=== PATIENT | male | born 1940 | race Caucasian/White ===

== ENCOUNTER 2024-04-02 14:20 | Outpatient (CLI) | payer MEDICARE, SELFPAY ==
--- OUTSIDE RECORDS SUMMARY | 2024-04-02 14:32 | XMS_ITS | Encounter Summary ---
Author Organization [facility] Healthcare Address [address] [place] [address] Care Team Providers Care Compliance Counsel Name Role Phone Victor M Roman MD Unavailable [phone] Madelaine Cruz MD Primary Care Provide r Reason for Visit * Reason Comments Follow-up Encounter Details Date Type Department Care Team (Late st Contact Info) Description 04/01/2024 11:45 AM DIGITAL MEDIA BUYER Office Visit [facility] [place] [facility] [address] [place] [phone] Amber Orlando MD [address] [place] [address] [address] Chronic congestive heart failure, unspecified heart failure type (HCC) (Primary Dx) Social History Tobacco Use Types Packs/Day Years Used Date Smoking Tobacco: Former Cigarettes 0.5 40 1 981 - 2020 Smokeless Tobacco: Never Alcohol Use Standard Drinks/Week Comments No 0 (1 standard drink = 0.6 oz pur e alcohol) Sex and Gender Information Value Date Recorded Sex Assigned at Not on file Legal Sex Male 10:27 AM DIGITAL MEDIA BUYER Gender Identity Not on file Sexual Orientation Not on file documented as of this encounter Last Filed Vital Signs Vital Sign Reading Time Taken Comments Blood Pressure 144/88 04/01/2024 11:41 AM DIGITAL MEDIA BUYER Pulse 71 04/01/2024 11:41 AM DIGITAL MEDIA BUYER Temperature - - Respiratory Rate 16 04/01/2024 11:41 AM DIGITAL MEDIA BUYER Oxygen Saturation 90% 04/01/2024 11:41 AM DIGITAL MEDIA BUYER Inhaled Oxygen Concentration - - Weight 75.3 kg (166 lb) 04/01/2024 11:41 AM DIGITAL MEDIA BUYER Height - - Body Mass Index 25.24 12/27/2021 11:32 AM DIGITAL MEDIA BUYER documented in this encounter Progress Notes * Amber Orlando MD - 04/01/2024 11:45 AM CST Cardiology note 04/01/2024 This note contains information and findings from prior encounters which remain the same for today'sencounter. I have reviewed and made updates where applicable. Reason for Office Visit: Chief Complaint Patient presents with Follow-up History of Present Illness: Jaime Cuenca is a 83 y.o. male CABG X4 with admission with CP and cMP in 09/27 Has not been in the office since 2021 had moved to [place] for family reasons now he is back No cardiac complaints Compliant with his medications Continues to smoke Weight: up 5 lbs Review of Systems: Review of Systems Constitutional: Negative for decreased appetite, diaphoresis, fever, weight gain and weight loss. HENT: Negative for nosebleeds. Eyes: Negative for blurred vision. Cardiovascular: Negative for chest pain, claudication, cyanosis, dyspnea on exertion, irregular heartbeat, leg swelling, near-syncope, orthopnea, palpitations, paroxysmal nocturnal dyspnea and syncope. Respiratory: Negative for cough, hemoptysis, shortness of breath, sleep disturbances due to breathing, snoring, sputum production and wheezing. Hematologic/Lymphatic: Negative for bleeding problem. Does not bruise/bleed easily. Musculoskeletal: Negative for back pain. Gastrointestinal: Negative for bloating, heartburn and nausea. Genitourinary: Negative for hematuria. Neurological: Negative for excessive daytime sleepiness, dizziness, headaches, light-headedness, loss of balance and vertigo. Psychiatric/Behavioral: Negative for altered mental status and memory loss. Histories: Past Medical History: Diagnosis Date CAD (coronary artery disease) s/p 4v CABG in 07/2016, SHI-->diag, SVG-->ramus, radial graft-->OM, and SVG-->RCA. Subsequently had PCI to LAD and LCx in 09/2016. Last LHC 07/2017 with patent stents, TCO SVG to ramus but otherwise patent grafts. CHF (congestive heart failure) (CMS/HCC) (HCC) Depression GERD (gastroesophageal reflux disease) Hyperlipidemia Hypertension Myocardial infarct, old Past Surgical History: Procedure Laterality Date BYPASS GRAFT Family History Problem Relation Age of Onset Coronary artery disease Mother Family history of coronary artery disease - (Added by TW Conv) Hypertension Mother Heart disease Mother Coronary artery disease Father Family history of coronary artery disease - (Added by TW Conv) Lung cancer Father Social History Tobacco Use Smoking status: Former Smoker Packs/day: 0.50 Years: 40.00 Pack years: 20.00 Quit date: 2020 Years since quittin.7 Smokeless tobacco: Never Used Substance Use Topics Alcohol use: No Drug use: No Allergies: Allergies Allergen Reactions Codeine Metronidazole Current Outpatient Medications Medication Sig Dispense Refill amLODIPine (NORVASC) 5 mg tablet Take 1 tablet (5 mg total) by mouth daily aspirin 81 mg tablet Take 1 tablet (81 mg total) by mouth daily carvedilol (COREG) 3.125 mg tablet Take 1 tablet (3.125 mg total) by mouth 2 (two) times a day withmeals ciprofloxacin (CILOXAN) 0.3 % ophthalmic solution INSTILL 1 OR 2 DROPS INTO THE LEFT EYE THREE TIMES DAILY FOR 7 DAYS 0 clonazePAM (KlonoPIN) 0.125 mg disintegrating tablet Take 1 tablet (0.125 mg total) by mouth nightly as needed for anxiety 30 tablet 5 clonazePAM (KlonoPIN) 0.5 mg tablet clopidogrel (PLAVIX) 75 mg tablet Take 1 tablet (75 mg total) by mouth daily Entresto 97-103 mg tablet TAKE 1 TABLET BY MOUTH TWICE DAILY 180 tablet 1 metoclopramide (REGLAN) 5 mg tablet mirtazapine (REMERON) 30 mg tablet Take 1 tablet (30 mg total) by mouth nightly omeprazole (PriLOSEC) 20 mg capsule Take 1 capsule (20 mg total) by mouth 2 (two) times a day ondansetron ODT (ZOFRAN-ODT) 4 mg disintegrating tablet prochlorperazine (COMPAZINE) 5 mg tablet rosuvastatin (CRESTOR) 10 mg tablet TAKE 1 TABLET(10 MG) BY MOUTH DAILY 90 tablet 1 spironolactone (ALDACTONE) 25 mg tablet Take 1 tablet (25 mg total) by mouth daily tamsulosin (FLOMAX) 0.4 mg extended release capsule 1 capsule (0.4 mg total) venlafaxine XR (EFFEXOR-XR) 150 mg 24 hr capsule Take 1 capsule (150 mg total) by mouth daily 90 capsule 3 zolpidem (AMBIEN) 10 mg tablet Take 1 tablet (10 mg total) by mouth nightly as needed for sleep forup to 10 doses 10 tablet 0 No current facility-administered medications for this visit. No current facility-administered medications for this visit. Vital Signs: Vitals BP 144/88 (BP Location: Left arm, Patient Position: Sitting) Pulse 71 Resp 16 Wt 75.3 kg (166 lb) SpO2 90% BMI 25.24 kg/m?? Vitals: 04/01/24 1141 BP: 144/88 Pulse: 71 Resp: 16 SpO2: 90% Wt Readings from Last 3 Encounters: 04/01/24 75.3 kg (166 lb) 12/27/21 72.9 kg (160 lb 12.8 oz) 11/23/20 72.5 kg (159 lb 12.8 oz) Body mass index is 25.24 kg/m??. Physical Exam: Physical Exam Constitutional: General: He is not in acute distress. Appearance: Normal appearance. He is well-developed. He is not diaphoretic. HENT: Mouth/Throat: Pharynx: No oropharyngeal exudate. Eyes: Pupils: Pupils are equal, round, and reactive to light. Neck: Vascular: No JVD. Trachea: No tracheal deviation. Cardiovascular: Rate and Rhythm: Normal rate and regular rhythm. Pulses: Intact distal pulses. No decreased pulses. Carotid pulses are 2+ on the right side and 2+ on the left side. Radial pulses are 2+ on the right side and 2+ on the left side. Dorsalis pedis pulses are 2+ on the right side and 2+ on the left side. Posterior tibial pulses are 2+ on the right side and 2+ on the left side. Heart sounds: S1 normal and S2 normal. No murmur heard. No gallop. Pulmonary: Effort: Pulmonary effort is normal. Breath sounds: No decreased breath sounds, wheezing, rhonchi or rales. Abdominal: General: Bowel sounds are normal. Palpations: Abdomen is soft. Skin: General: Skin is warm and dry. Neurological: Mental Status: He is alert and oriented to person, place, and time. Labs: Lab Results Component Value Date INR 1.22 (H) 01/27/2018 INR 1.19 11/23/2017 INR 1.16 10/04/2017 Lab Results Component Value Date PT 13.1 (H) 01/27/2018 PT 12.8 11/23/2017 PT 13.1 (H) 10/04/2017 Lab Results Component Value Date TSH 0.52 01/27/2018 Lab Results Component Value Date BILIRUBINU Negative 07/31/2016 AST 14 01/27/2018 ALT 11 01/27/2018 ALKPHOS 75 01/27/2018 ALBUMIN 4.1 01/27/2018 Lab Results Component Value Date SODIUM 139 01/28/2018 POTASSIUM 4.0 01/28/2018 CHLORIDE 105 01/28/2018 CO2 25 01/28/2018 ANIONGAP 9 01/28/2018 GLUCOSEUR Negative 07/31/2016 Lab Results Component Value Date BNP 66 09/30/2016 Lab Results Component Value Date SODIUM 139 01/28/2018 SODIUM 141 01/27/2018 SODIUM 137 12/03/2017 POTASSIUM 4.0 01/28/2018 POTASSIUM 4.1 01/27/2018 POTASSIUM 4.3 12/03/2017 CHLORIDE 105 01/28/2018 CHLORIDE 108 01/27/2018 CHLORIDE 107 12/03/2017 CO2 25 01/28/2018 CO2 24 01/27/2018 CO2 25 12/03/2017 BUNSER 25 01/28/2018 BUNSER 18 01/27/2018 BUNSER 20 12/03/2017 CREATININE 0.93 04/18/2018 CREATININE 1.24 01/28/2018 CREATININE 1.09 01/27/2018 GFRNAA 63 12/03/2017 GFRNAA 65 12/02/2017 GFRNAA 57 12/01/2017 GLUCOSE 80 01/28/2018 CALCIUM 9.1 01/28/2018 CALCIUM 9.5 01/27/2018 CALCIUM 8.7 12/03/2017 ALBUMIN 4.1 01/27/2018 ALBUMIN 3.3 12/02/2017 ALBUMIN 3.6 12/01/2017 PHOS 3.3 06/18/2016 PHOS 2.2 (L) 12/18/2012 Lab Results Component Value Date SODIUM 139 01/28/2018 POTASSIUM 4.0 01/28/2018 CHLORIDE 105 01/28/2018 CO2 25 01/28/2018 ANIONGAP 9 01/28/2018 BUNSER 25 01/28/2018 CREATININE 0.93 04/18/2018 GLUCOSE 80 01/28/2018 CALCIUM 9.1 01/28/2018 BILITOT 0.5 01/27/2018 PROT 7.3 01/27/2018 ALBUMIN 4.1 01/27/2018 ALKPHOS 75 01/27/2018 ALT 11 01/27/2018 AST 14 01/27/2018 Lab Results Component Value Date WBC 5.7 01/28/2018 HGB 13.3 01/28/2018 HCT 42.3 01/28/2018 LABPLAT 214 01/28/2018 MPV 10.8 01/28/2018 RBC 4.94 01/28/2018 MCV 85.6 01/28/2018 MCH 26.9 (L) 01/28/2018 MCHC 31.4 (L) 01/28/2018 RDWCV 14.5 01/28/2018 RDWSD 44.3 01/28/2018 NRBCABS 0.00 01/28/2018 Lab Results Component Value Date CHOL 76 (L) 07/18/2017 TRIG 97 07/18/2017 HDL 24 (L) 07/18/2017 LDLCALC 33 (L) 07/18/2017 NONHDLCHOL 52 07/18/201712/01 lipid profile excellent Testing: Tests: C Cath 09/27 SVG to Ramus OCC, Radial Graft prox stenosis, SVG to RCA patent, SHI to diag patent, stent LAD and mid Cx 01/27 MUGA EF 48% 07/29 C Cath EF 35-40% all grafts and stents patent Med RX: LAD and Cx stents patent, SHI-D1 OK, SVG to PDA OK, Free radial to OM OK, Occ SVG to ramus 07/30 echo EF 50% EKG: NSR KS QRS 96 06/01 EKG shows sinus rhythm old anteroseptal KS 06/01 echocardiogram ejection fraction 45% 11/02 nuclear stress test no ischemia 01/02 EKG normal sinus rhythm old anterior KS ST and T abnormality 11/03 nuclear stress test no ischemia 11/04 echo ejection fraction 40-45% as before 04/07 EKG sinus rhythm old anterior [place] ST and T abnormality unchanged Diagnoses and Plan Assessment: Atherosclerotic heart disease of [place] coronary artery without angina pectoris [I25.10] Presence of aortocoronary bypass graft [Z95.1] Ischemic cardiomyopathy [I25.5] Presence of coronary angioplasty implant and graft [Z95.5] Atherosclerotic heart disease of [place] coronary artery without angina pectoris [I25.10] Presence of aortocoronary bypass graft [Z95.1] Ischemic cardiomyopathy [I25.5] Presence of coronary angioplasty implant and graft [Z95.5] Plan: Continue same medication regimen. Continue tight control of blood pressure and cholesterol. Continue diet, exercise, and weight maintenance. Smoking cessation discussed with patient including the potential health risks. Patient was given options of different aids for smoking cessation. Will continue the discussion. Recent stress test and echocardiogram reviewed appears stable Lipid profile and thyroid profile with his next lab work Yearly follow-up Diagnoses and all orders for this visit: Chronic congestive heart failure, unspecified heart failure type (HCC) (Primary) - ECG 12 lead No follow-ups on file. 11:51 AM Amber Orlando MD Cc:Moose Farr MD [employer]IA BUYER documented in this encounter Plan of Treatment Not on file documented as of this encounter Goals Goal Patient Goal Type Associated Problems Recent Progress Patient-Stated? Author Take your medication every day Lifestyle No Prabha Garcia MSW documented as of this encounter Procedures Procedure Name Priority Date/Time Associated Diagnosis Comments ECG 12-LEAD Routine 04/01/2024 11:39 AM DIGITAL MEDIA BUYER Chronic congestive heart failure, unspecified heart failure type (HCC) documented in this encounter Results * ECG 12 lead (04/01/2024 11:39 AM DIGITAL MEDIA BUYER) us Amber Orlando MD ECG ORDERABLES Final Result documented in this encounter Visit Diagnoses Diagnosis Chronic congestive heart failure, unspecified heart failure type (HCC)- Primary documented in this encounter Care Teams Compliance Counsel Relationship Specialty Start Date End Date Madelaine Cruz MD [address] [place] [id number] PCP - General Internal Medicine 04/01/24 Victor M Roman MD Consulting Physician Cardiology 12/03/17 documented as of this encounter
--- OUTSIDE RECORDS SUMMARY | 2024-04-02 14:32 | XMS_ITS | Referral Summary ---
Author Organization [facility] Address [address] [place] [address] Care Team Providers Care Compress Trucker Name Role Phone Victor M Roman MD Unavailable [phone] Madelaine Cruz MD Primary Care Provide r Encounters Date Type Department Care Team Description 04/01/2024 Orders Only [employer] Field Service Technician [address] [place] [phone] Amber Orlando MD Hyperlipidemia, unspecified hyperlipidemia type (Primary Dx) 04/01/2024 11:45 AM TRANSITIONAL KINDERGARTEN TEACHER Office Visit [facility] [employer] Service Technician [address] [place] [phone] Amber Orlando MD Chronic congestive heart failure, unspecified heart failure type (HCC) (Primary Dx) 03/23/2024 Orders Only [facility] [employer] Service Technician [address] [place] [phone] Provider, MD Keri from Last 3 Months Allergies Active Allergy Reactions Criticality Noted Date Comments Codeine Medium Metronidazole Medium Medications aspirin 81 mg tablet Take 1 tablet (81 mg total) by mouth daily Active clopidogrel (PLAVIX) 75 mg tablet Take 1 tablet (75 mg total) by mouth daily Active carvedilol (COREG) 3.125 mg tablet Take 1 tablet (3.125 mg total) by mouth 2 (two) times a day with meals Active spironolactone (ALDACTONE) 25 mg tablet Take 1 tablet (25 mg total) by mouth daily Active omeprazole (PriLOSEC) 20 mg capsule Take 1 capsule (20 mg total) by mouth 2 (two) times a day Active mirtazapine (REMERON) 30 mg tablet Take 1 tablet (30 mg total) by mouth nightly Active amLODIPine (NORVASC) 5 mg tablet Take 1 tablet (5 mg total) by mouth daily Active tamsulosin (FLOMAX) 0.4 mg extended release capsule 1 capsule (0.4 mg total) Active prochlorperazine (COMPAZINE) 5 mg tablet 8 Active metoclopramide (REGLAN) 5 mg tablet 9 Active clonazePAM (KlonoPIN) 0.5 mg tablet 9 Active ondansetron ODT (ZOFRAN-ODT) 4 mg disintegrating tablet 9 Active clonazePAM (KlonoPIN) 0.125 mg disintegrating tablet Take 1 tablet (0.125 mg total) by mouth nightly as needed for anxiety 30 tablet 5 9 Active ciprofloxacin (CILOXAN) 0.3 % ophthalmic solution INSTILL 1 OR 2 DROPS INTO THE LEFT EYE THREE TIMES DAILY FOR 7 DAYS 0 9 Active zolpidem (AMBIEN) 10 mg tabletIndications:S leep-Onset Insomnia Take 1 tablet (10 mg total) by mouth nightly as needed for sleep for up to 10 doses 10 tablet 9 Active venlafaxine XR (EFFEXOR-XR) 150 mg 24 hr capsule Take 1 capsule (150 mg total) by mouth daily 90 capsule 3 0 Active rosuvastatin (CRESTOR) 10 mg tablet TAKE 1 TABLET(10 MG) BY MOUTH DAILY 90 tablet 1 3 Active Entresto 97-103 mg tablet TAKE 1 TABLET BY MOUTH TWICE DAILY 180 tablet 1 3 Active Active Problems Problem Noted Date Diagnosed Date Irritable bowel syndrome without diarrhea 2020 BPH (benign prostatic hyperplasia) 01/28/2018 Assessment & Plan (01/28/2018 4:57 AM TRANSITIONAL KINDERGARTEN TEACHER): - home tamsulosin in AM CHF (congestive heart failure) (CMS/HCC) 018 GERD (gastroesophageal reflux disease) 8 Depression 12/01/2017 [facility] current use of clopidogrel 11/23/2017 Aspirin long-term use 11/23/2017 History of CHF (congestive heart failure) 2017 Nausea in adult 11/23/2017 Assessment & Plan (01/29/2018 8:49 AM TRANSITIONAL KINDERGARTEN TEACHER): Chronic since PCI in 07/2017. DDx functional vs billiary disease/malignancy, mesenteric angina, medication related, depression vs less likely mesenteric ischemia (prior CTA negative) - Biliary ductal dilation seen on CT likely related to previous cholecystectomy - Patient complaining of weight loss -> MRCP to rule out biliary cause - PPI, Zofran, GI cocktail, bowel regimen, - If MRCP negative, will discharge with supportive care and schedule outpatient follow up with GI - May benefit from SNRI and smoking cessation Assessment & Plan (11/24/2017 11:29 AM CDT): Chronic, with associated LUQ abd pain and rare emesis or changes in bowel habits. Does have 8lb weight loss over last 2wks. CT A/P w/ con showed diffuse and severe atherosclerosis of abdominal aorta and its iliac branches, unchanged since 09/2017 with patent visceral arteries. DDx includes med related (ongoing since increasing heart failure regimen meds) vs gastritis vs. chronic mesenteric ischemia (lactate upper limit of normal) vs less likely anginal equivalent vs functional. -Symptoms are not typical of abdominal angina. Pain has improved at this time. If symptoms worsen, can consider CT angio of abdomen -No other e/o malignancy on labs or imaging but does report weight loss. Reports recent EGD/c-scope with polyps removed but otherwise normal. Will obtain records today. -Symptoms are improving with zofran before meals and PRN Compazine. Assessment & Plan (11/23/2017 11:22 PM CDT): Chronic, with associated LUQ abd pain and rare emesis or changes in bowel habits. Does have 8lb weight loss over last 2wks. Labs otherwise fairly normal outside of mild trop elevation. CT A/P w/ con showed diffuse and severe atherosclerosis of abdominal aorta and its iliac branches, unchanged since 09/2017 with patent visceral arteries. DDx includes med related (ongoing since increasing heart failure regimen meds) vs chronic mesenteric ischemia (lactate upper limit of normal) vs less likely anginal equivalent vs functional. -Symptoms are not typical of abdominal angina but patient does have severe atherosclerosis. Could consider CT angio of abdomen but patient just received contrast for CT A/P so prefer to hold off. Unclear if patient would be a candidate for any vascular intervention if CT angio did show more distal arterial occlusion. Would benefit from smoking cessation. -No other e/o malignancy on labs or imaging but does report weight loss. Reports recent EGD/c-scope with polyps removed but otherwise normal. Can try to get records to determine need for repeat EGD in s/o weight loss. -Will plan to check A1c and TSH to r/o contributions from gastroparesis though symptoms aren't typical of this either. Check U/A to r/o UTI given LUTS. -Treat symptomatically with PO Zofran before meals and PRN Compazine. -Nutrition c/s for dietary management. -Patient would like to try to stop some of his cardiac meds as he feels they are causing nausea. Unfortunately, he is on a good regimen which seems to be helping him given lack of heart failure symptoms in patient with EF of 25%. -If symptoms controlled with PO Zofran, can likely d/c with outpatient GI/PCP follow up to adjust meds and discuss need for EGD. Elevated troponin 11/23/2017 Assessment & Plan (11/24/2017 11:27 AM CDT): Patient without cardiac symptoms though has unexplained GI symptoms. EKG with inferolateral TWi stable compared to priors. -More likely that troponin represents demand ischemia and less likely ACS. Trop stabilized to 0.07 -Trop has been stable, and patient has recent cardiac cath 07/2018 that showed Three-vessel coronary artery disease with Patent stent in the mid LAD, circumflex artery, Patent AURA graft to the diagonal branch of the LAD, Patent saphenous vein graft to the posterior descending artery -Cont home ASA, statin, plavix, and BB. -Holding off on repeat TTE given overall clinical picture and stability. Assessment & Plan (11/23/2017 11:01 PM CDT): Patient without cardiac symptoms though has unexplained GI symptoms which may represent anginal equivalent. EKG with inferolateral TWi stable compared to priors. -More likely that troponin represents demand ischemia and less likely ACS but considering patient's known CAD and continued smoking, plan to trend trop and EKG overnight and watch on tele. -Cont home ASA, statin, plavix, and BB. -Holding off on repeat TTE given overall clinical picture and stability. If trop rises overnight can then order TTE and consider cards c/s. Essential hypertension 10/05/2017 Assessment & Plan (01/28/2018 4:59 AM TRANSITIONAL KINDERGARTEN TEACHER): - amlodipine, coreg Assessment & Plan (11/24/2017 11:25 AM CDT): -Cont home amlodipine and CHF regimen as above. Assessment & Plan (11/23/2017 10:57 PM CDT): -Cont home amlodipine and CHF regimen as above. If BP on lower end, consider d/cing Amlodipine as patient wants to take fewer meds. CAD (coronary artery disease) 10/05/2017 Assessment & Plan (01/28/2018 5:17 AM TRANSITIONAL KINDERGARTEN TEACHER): s/p 4v CABG with known occlusion of SVG to ramus now s/p PCI to LAD and LCx, last [facility] 07/2017 with patent stents and grafts. -Cont. ASA, plavix Assessment & Plan (11/24/2017 11:25 AM CDT): S/p 4v CABG with known occlusion of SVG to ramus now s/p PCI to LAD and LCx, last [facility] 07/2017 with patent stents and grafts. -Cont. ASA, statin, plavix. Assessment & Plan (11/23/2017 10:58 PM CDT): S/p 4v CABG with known occlusion of SVG to ramus now s/p PCI to LAD and LCx, last [facility] 07/2017 with patent stents and grafts. -Trop leak as above. -Cont. ASA, statin, plavix. Hyperlipidemia 10/05/2017 Assessment & Plan (01/28/2018 5:01 AM TRANSITIONAL KINDERGARTEN TEACHER): - no longer taking statin out of c/f nausea Assessment & Plan (11/24/2017 11:25 AM CDT): -Cont statin. Assessment & Plan (11/23/2017 10:58 PM CDT): -Cont statin. Anxiety 10/05/2017 Assessment & Plan (01/28/2018 5:00 AM TRANSITIONAL KINDERGARTEN TEACHER): - home buspar and mirtazapine - Patient may have functional component of abdominal pain and may benefit from SNRI in future after medical causes have been ruled out Assessment & Plan (11/24/2017 11:25 AM CDT): Symptoms well controlled. -Cont home Buspar and Mirtazapine. Assessment & Plan (11/23/2017 10:58 PM CDT): Symptoms well controlled. -Cont home Buspar and Mirtazapine. Hx of CABG 07/18/2017 H/O heart artery stent 07/18/2017 Chronic combined systolic an d diastolic congestive heart failure (CMS/HCC) 07/18/2017 Assessment & Plan (01/29/2018 8:50 AM TRANSITIONAL KINDERGARTEN TEACHER): Last TTE at [facility] 09/2016 w/ EF 25%, diastolic dysfunction, multiple regional wall motion abnormalities but no valvular disease. Currently with no e/o exacerbation. Pro-BNP 219 -Cont home regimen- Coreg, Entresto max dose, Spironolactone. - no evidence of v/o -Would hold off adjusting CHF regimen despite soft BP given he is compensated Assessment & Plan (11/24/2017 11:24 AM CDT): Last TTE at [facility] 09/2016 w/ EF 25%, diastolic dysfunction, multiple regional wall motion abnormalities but no valvular disease. Currently with no e/o exacerbation. Pro-BNP 192 -Cont home regimen- Coreg, Entresto max dose, Spironolactone, and Lasix. -Would hold off adjusting CHF regimen at this point given he is compensated Assessment & Plan (11/23/2017 10:56 PM CDT): Last TTE at [facility] 09/2016 w/ EF 25%, diastolic dysfunction, multiple regional wall motion abnormalities but no valvular disease. Currently with no e/o exacerbation. Pro-BNP 192, no prior to compare. -Cont home regimen- Coreg, Entresto max dose, Spironolactone, and Lasix. -Discussed with patient many meds can cause nausea but med related nausea typically resolves after taking med over time. Would prefer not to adjust CHF regimen at this point given how well compensated he appears. Hypokalemia 07/18/2017 Chest pressure 07/17/2017 Overview (07/17/2017): Added automatically from request for surgery [id number] Acute chest pain Weight loss, unintentional Social History Tobacco Use Types Packs/Day Years Used Date Smoking Tobacco: Former Cigarettes 0.5 40 1 981 - 2020 Smokeless Tobacco: Never Tobacco Cessation:Counseling Given: Not Answered Alcohol Use Standard Drinks/Week Comments No 0 (1 standard drink = 0.6 oz pur e alcohol) Sex and Gender Information Value Date Recorded Sex Assigned at Not on file Legal Sex Male 10:27 AM TRANSITIONAL KINDERGARTEN TEACHER Gender Identity Not on file Sexual Orientation Not on file Last Filed Vital Signs Vital Sign Reading Time Taken Comments Blood Pressure 144/88 04/01/2024 11:41 AM TRANSITIONAL KINDERGARTEN TEACHER Pulse 71 04/01/2024 11:41 AM TRANSITIONAL KINDERGARTEN TEACHER Temperature 36.2 C (97.1 F) 05/25/2020 10:17 AM CDT Respiratory Rate 16 04/01/2024 11:41 AM TRANSITIONAL KINDERGARTEN TEACHER Oxygen Saturation 90% 04/01/2024 11:41 AM TRANSITIONAL KINDERGARTEN TEACHER Inhaled Oxygen Concentration - - Weight 75.3 kg (166 lb) 04/01/2024 11:41 AM TRANSITIONAL KINDERGARTEN TEACHER Height 172.7 cm (5' 8 ) 12/27/2021 11:32 AM TRANSITIONAL KINDERGARTEN TEACHER Body Mass Index 25.24 12/27/2021 11:32 AM TRANSITIONAL KINDERGARTEN TEACHER Plan of Treatment Not on file Goals Goal Patient Goal Type Associated Problems Recent Progress Patient-Stated? Author Take your medication every day Lifestyle No Prabha Garcia, FIELD SOFTWARE ENGINEER Medical Devices Implanted Type Area Processing Engineer Device Identifier Shelf Expiration Date Model / Serial / Lot Cardiac Stent Heart Description:Mini Vision bare metal stent placed 2017 in posterior lateral artery (patient has card for this) 2.5 x 38 mm Xience drug-eluting stent placed 2016 in LAD 2.5 x 12 mm Xience drug-eluting stent placed 2017 in LCX History of LCx stent placement 2004 as well. Patient does not have a card and his current cardiology does not know the history of this stent. Procedures Procedure Name Priority Date/Time Associated Diagnosis Comments ECG 12-LEAD Routine 04/01/2024 11:39 AM TRANSITIONAL KINDERGARTEN TEACHER Chronic congestive heart failure, unspecified heart failure type (HCC) EXTERNAL REFERENCE LAB RESULTS Routine 03/23/2024 1:40 PM TRANSITIONAL KINDERGARTEN TEACHER from Last 3 Months Results * ECG 12 lead (04/01/2024 11:39 AM TRANSITIONAL KINDERGARTEN TEACHER) Amber Orlando MD ECG ORDERABLES Final Result * External Reference Lab Results (03/23/2024 1:40 PM TRANSITIONAL KINDERGARTEN TEACHER) Historical Provider LAB BLOOD ORDERABLES Lily l Result from Last 3 Months Insurance MEDICARE COMMERCIAL GENERIC MEDICARE COMMERCIAL GENERIC [employer] INSURANCE [employer] MEDICARE HUMAN MEDICARE HMO MEDICARE PPO Advance Directives For more information, please contact: [phone] * Full Code (Latest Code Status on File) Date Activated Date Inactivated Comments 01/28/2018 1:47 AM 01/29/2018 8:36 PM * Full Code Date Activated Date Inactivated Comments 12/01/2017 9:44 PM 12/03/2017 3:05 PM * Full Code Date Activated Date Inactivated Comments 12/01/2017 9:02 PM 12/01/2017 9:44 PM * Full Code Date Activated Date Inactivated Comments 11/23/2017 10:18 PM 11/24/2017 7:31 PM * Full Code Date Activated Date Inactivated Comments 10/04/2017 9:13 PM 10/05/2017 7:18 PM Care Teams Compress Trucker Relationship Specialty Start Date End Date Madelaine Cruz MD [address] [place] [address] PCP - General Internal Medicine 04/01/24 Victor M Roman MD Consulting Physician Cardiology 12/03/17
--- OUTSIDE RECORDS SUMMARY | 2024-04-02 14:32 | XMS_ITS | Encounter Summary ---
Author Organization [facility] Address [facility]ly [facility] [place] [address] Care Team Providers Care Supervisor Gear Repair Name Role Phone Bindu Cruz MD Primary Care Provider Encounter Details Date Type Department Care Team (Latest Contact Info) Description 04/02/2024 Travel Social History Tobacco Use Types Packs/Day Years Used Date Smoking Tobacco: Never Assessed Sex and Gender Information Value Date Recorded Sex Assigned at Male 03/23/2024 12:18 PM ICE CREAM VAN VENDOR Legal Sex Male 12:18 PM ICE CREAM VAN VENDOR Gender Identity Not on file Sexual Orientation Not on file documented as of this encounter Plan of Treatment Not on file documented as of this encounter Visit Diagnoses Not on filedocumented in this encounter Care Teams Supervisor Gear Repair Relationship Specialty Start Date End Date Bindu Cruz MD [address] [address] PCP - General INTERNAL MEDICINE 03/23/24 documented as of this encounter
--- OUTSIDE RECORDS SUMMARY | 2024-04-02 14:32 | XMS_ITS | Clinical Summary ---
Author Organization [facility] Address [facility] [place] [address] Care Team Providers Care Tool Machine Shop Supervisor Name Role Phone Bindu Cruz MD Primary Care Provider Encounters Date Type Department Care Team Description 04/02/2024 Travel 03/23/2024 12:20 PM WARP KNITTER HELPER - 03/23/2024 11:59 PM WARP KNITTER HELPER Hospital Encounter [facility] [address] [place] [address] Almas Smith, Discharge Disposition: Home or Self Care (Routine Discharge) 03/23/2024 Orders Only [facility] [address] [place] [address] Almas Smith DO 03/23/2024 Travel from Last 3 Months Social History Tobacco Use Types Packs/Day Years Used Date Smoking Tobacco: Never Assessed Sex and Gender Information Value Date Recorded Sex Assigned at Male 03/23/2024 12:18 PM WARP KNITTER HELPER Legal Sex Male 12:18 PM WARP KNITTER HELPER Gender Identity Not on file Sexual Orientation Not on file Plan of Treatment Health Maintenance Due Date Last Done Comments DTaP, Tdap and Td Vaccines (1 - Tdap) 1960 Zoster Vaccines (1 of 2) 1991 Annual Medicare Wellness Visit 2006 RSV Immunization or 60+ Years (1 - 1-dose 75+ series) 2016 COVID-19 Vaccine ( - 2023- season) 2023 Influenza Adult (#1) 2023 01/26/2020, 12/10/2018, 12/08/2018, Additional history exists Pneumococcal Vaccine: 65+ Years Completed 12/15/2018, 10/24/2017 Meningococcal B Vaccine Aged Out No l onger eligible based on patient's age to complete this topic Meningococcal Vaccine Aged Out No jonathan loraine eligible based on patient's age to complete this topic RSV Immunizations Under 20 Months Aged Out No longer eligible based on patient's age to complete this topic Procedures Procedure Name Priority Date/Time Associated Diagnosis Comments CBC W/DIFF AUTOMATED Routine 03/23/2024 12:41 PM WARP KNITTER HELPER 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) MAGNESIUM Routine 03/23/2024 12:41 PM WARP KNITTER HELPER 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) RENAL FUNCTION PANEL Routine 03/23/2024 12:41 PM WARP KNITTER HELPER 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) HC CREATININE OTH SOURCE Routine 03/23/2024 12:36 PM WARP KNITTER HELPER 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) ALBUMIN URINE RANDOM W/CREATININE Routine 03/23/2024 12:36 PM WARP KNITTER HELPER 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) HC URINALYSIS AUTO W/MICRO Routine 03/23/2024 12:36 PM WARP KNITTER HELPER 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) from Last 3 Months Results * (ABNORMAL) RENAL FUNCTION PANEL (03/23/2024 12:41 PM WARP KNITTER HELPER) SODIUM S/P/B 144 136 - 145 MMOL/L 03/23/2024 12:59 PM [facility] POTASSIUM S/P/B 3.6 3.5 - 5.1 MMOL/L 03/23/2024 12:59 PM [facility] CHLORIDE S/P/B 106 98 - 107 MMOL/L 03/23/2024 12:59 PM [facility] CO2 31.5 21.0 - 32.0 MMOL/L 03/23/2024 12:59 PM [facility] GLUCOSE 97 70 - 99 MG/DL 03/23/2024 12:59 PM [facility] Comment: FASTING GLUCOSE 100 TO 125 MG/DL IS CONSISTENT WITH IMPAIRED FASTING GLUCOSE. FASTING GLUCOSE >125 MG/DL IS CONSISTENT WITH DIABETES. RANDOM GLUCOSE >200 MG/DL WITH HYPERGLYCEMIC SYMPTOMS IS CONSISTENT WITH DIABETES. PER ADA GUIDELINES BUN 14 6 - 24 MG/DL 03/23/2024 12:59 PM [facility] CREATININE S/P/B 1.32(H) 0.70 - 1.30 MG/DL 03/23/2024 12:59 PM [facility] CALCIUM S/P/B 8.8 8.4 - 10.5 MG/DL 03/23/2024 12:59 PM [facility] ALBUMIN S/P/B 3.1(L) 3.4 - 5.0 G/DL 03/23/2024 12:59 PM [facility] PHOSPHORUS 3.4 2.6 - 4.7 MG/DL 03/23/2024 12:59 PM [facility] ANION GAP 6.5 5.0 - 15.0 MMOL/L 03/23/2024 12:59 PM [facility] OSMOLALITY (CALC) 298 MOSM/KG 025 12:59 PM [facility] Comment:REFERENCE RANGE NOT ESTABLISHED GFR ESTIMATE 54(L) >89 ML/MIN/1. 73 M2 03/23/2024 12:59 PM [facility] GFR NOTES GFR REFERENCE S: 03/23/2024 12:59 PM [facility] Comment: THE ESTIMATED GFR IS CALCULATED USING THE 2020 CKD-EPI EQUATION. THE FOLLOWING CATEGORIES FOR GRADING RENAL FUNCTION ARE RECOMMENDED BY THE INTERNATIONAL SOCIETY OF NEPHROLOGY (KDIGO 2012 CLINICAL PRACTICE GUIDELINE). G1,NORMAL OR HIGH: >89 ml/min/1.73 m2 G2,MILDLY DECREASED: 60-89 ml/min/1.73 m2 G3A,MILDLY TO MODERATELY DECREASED: 45-59 ml/min/1.73 m2 G3B,MODERATELY TO SEVERELY DECREASED: 30-44 ml/min/1.73 m2 G4,SEVERELY DECREASED: 15-29 ml/min/1.73 m2 G5,KIDNEY FAILURE: <15 ml/min/1.73 m2 03/23/2024 12:4 1 PM WARP KNITTER HELPER Almas Smith DO LABORATORY Final Result [facility] [address] [place] [address], * (ABNORMAL) CBC W/DIFF AUTOMATED (03/23/2024 12:41 PM WARP KNITTER HELPER) WBC 5.87 4.00 - 10.80 x10'3/uL 03/23/2024 12:48 PM WARP KNITTER HELPER [facility] RBC 5.33 4.50 - 6.10 x10'6/uL 03/23/2024 12:48 PM WARP KNITTER HELPER [facility] HGB 15.2 13.0 - 18.0 G/DL 03/23/2024 12:48 PM WARP KNITTER HELPER [facility] HCT 47.8 37.0 - 52.0 % 03/23/2024 12:48 PM WARP KNITTER HELPER [facility] MCV 89.7 78.0 - 100.0 FL 03/23/2024 12:48 PM WARP KNITTER HELPER [facility] MCH 28.5 27.0 - 31.0 PG 03/23/2024 12:48 PM WARP KNITTER HELPER [facility] MCHC 31.8(L) 33.0 - 36.0 G/DL 03/23/2024 12:48 PM WARP KNITTER HELPER [facility] RDW 14.4 11.5 - 14.5 % 03/23/2024 12:48 PM WARP KNITTER HELPER [facility] PLT 177 150 - 350 x10'3/uL 03/23/2024 12:48 PM [facility] MPV 10.1 7.4 - 10.4 FL 03/23/2024 12:48 PM [facility] CBC COMMENT NORMAL REFERENCE RANGE NOT ESTABLISHED FOR THE PROPORTIONAL LEUKOCYTE DIFFERENTIAL. 03/23/2024 12:48 PM WARP KNITTER HELPER [facility] NEUTROPHILS % 68.9 % 03/23/2024 12:48 PM WARP KNITTER HELPER [facility] LYMPHOCYTES % 15.0 % 03/23/2024 12:48 PM WARP KNITTER HELPER [facility] MONOCYTES % 11.4 % 03/23/2024 12:48 PM WARP KNITTER HELPER [facility] EOSINOPHILS % 3.9 % 03/23/2024 12:48 PM WARP KNITTER HELPER [facility] BASOPHILS % 0.5 % 03/23/2024 12:48 PM WARP KNITTER HELPER [facility] IMMATURE GRANS % 0.3 % 03/23/19 12:48 PM WARP KNITTER HELPER [facility] NRBC % 0.0 % 03/23/2024 12:48 PM WARP KNITTER HELPER [facility] ABS. NEUTROPHILS 4.04 1.60 - 8.30 x10'3/uL 03/23/2024 12:48 PM WARP KNITTER HELPER [facility] ABS. LYMPHOCYTES 0.88 0.80 - 4.70 x10'3/uL 03/23/2024 12:48 PM WARP KNITTER HELPER [facility] ABS. MONOCYTES 0.67 0.00 - 1.50 x10'3/uL 03/23/2024 12:48 PM WARP KNITTER HELPER [facility] ABS. EOSINOPHILS 0.23 0.00 - 0.40 x10'3/uL 03/23/2024 12:48 PM WARP KNITTER HELPER [facility] ABS. BASOPHILS 0.03 0.00 - 0.20 x10'3/uL 03/23/2024 12:48 PM WARP KNITTER HELPER [facility] ABS. IMMATURE GRANULOCYTES 0.02 0.00 - 0.03 x10'3/uL 03/23/2024 12:48 PM WARP KNITTER HELPER [facility] ABS. NUCLEATED RBC'S 0.00 0.00 - 0.01 x10'3/uL 03/23/2024 12:48 PM WARP KNITTER HELPER [facility] 03/23/2024 12:4 1 PM WARP KNITTER HELPER us Almas Smith DO LABORATORY Final Result [facility] [place] [address], * (ABNORMAL) MAGNESIUM (03/23/2024 12:41 PM WARP KNITTER HELPER) MAGNESIUM 1.4(L) 1.8 - 2.4 MG/DL 03/23/2024 12:59 PM WARP KNITTER HELPER [facility] 03/23/2024 12:4 1 PM WARP KNITTER HELPER Almas Smith DO LABORATORY Final Result Performing Organization Address [facility] de Phone Number [facility] [address] [place] [id number], * (ABNORMAL) PROTEIN CREAT RATIO URINE (03/23/2024 12:36 PM WARP KNITTER HELPER) Pathologist [facility] PROTEIN URINE TOTAL RANDOM 117.0(H) <11.9 MG/DL 03/23/2024 12:52 PM WARP KNITTER HELPER [facility] CREATININE RANDOM (U) 127.3 MG/DL 03/23/2024 12:52 PM WARP KNITTER HELPER [facility] Comment:REFERENCE RANGE NOT ESTABLISHED PROTEIN/CREATINI NE RATIO 0.9 03/23/2024 12:52 PM WARP KNITTER HELPER [facility] Comment:CALCULATED VALUE. [facility] REFERENCE RANGE HAS NOT BEEN ESTABLISHED. URINE SPECIMEN / Unknown 03/23/2024 12:36 PM WARP KNITTER HELPER Almas Smith DO URINE ORDERABLES Final Resul t Performing Organization Address [facility]/ZIP Co de Phone Number [facility] [address] [place] [id number], * (ABNORMAL) URINALYSIS (03/23/2024 12:36 PM WARP KNITTER HELPER) COLOR (U) YELLOW 03/23/2024 12:58 PM WARP KNITTER HELPER [facility] TRANSPARENCY CLEAR 03/23/2024 12:58 PM WARP KNITTER HELPER [facility] SPECIFIC GRAVITY (U) 1.025 1.000 - 1.025 03/23/2024 12:58 PM WARP KNITTER HELPER [facility] U PH 6.0 5.0 - 8.0 03/23/2024 12:58 PM WARP KNITTER HELPER [facility] LEUKOCYTES (U) NEGATIVE NEGATIVE 03/23/2024 12:58 PM WARP KNITTER HELPER [facility] NITRITES NEGATIVE NEGATIVE 03/23/2024 12:58 PM WARP KNITTER HELPER [facility] PROTEIN RANDOM (U) 3+(A) NEGATIVE 03/23/2024 12:58 PM WARP KNITTER HELPER [facility] GLUCOSE (U) NEGATIVE NEGATIVE 03/23/2024 12:58 PM WARP KNITTER HELPER [facility] KETONES MG/DL (U) NEGATIVE NEGATIVE 03/23/2024 12:58 PM [facility] UROBILINOGEN 1.0(H) <1.0 EU/DL 03/23/2024 12:58 PM WARP KNITTER HELPER [facility] BILIRUBIN (U) NEGATIVE NEGATIVE 03/23/2024 12:58 PM [facility] BLOOD (U) TRACE(A) NEGATIVE 03/23/2024 12:58 PM WARP KNITTER HELPER [facility] WBC/HPF NONE SEEN(A) 0 - 5 /HPF 03/23/2024 1:02 PM WARP KNITTER HELPER [facility] RBC/HPF 0-5 0 - 5 /HPF 03/23/2024 12:58 PM WARP KNITTER HELPER [facility] EPI/LPF 0-5 /LPF 03/23/2024 12:58 PM [facility] BACTERIA (U) 1+ /HPF 03/23/2024 12:58 PM [facility] URINE SPECIMEN OBTAINED BY CLEAN CATCH PROCEDURE / Unknown 03/23/2024 12:36 PM WARP KNITTER HELPER us Almas Smith DO URINE ORDERABLES Final Resul t [facility] [address] [id number], * (ABNORMAL) ALBUMIN CREATININE URINE RANDOM (03/23/2024 12:36 PM WARP KNITTER HELPER) ALBUMIN (U) 68.0 MG/DL 03/23/2024 1:11 PM WARP KNITTER HELPER [facility] Comment:REFERENCE RANGE NOT ESTABLISHED CREATININE RANDOM (U) 126.8 MG/DL 03/23/2024 1:11 PM WARP KNITTER HELPER [facility] Comment:REFERENCE RANGE NOT ESTABLISHED ALBUMIN/CREAT RATIO 536.3(H) <30 MG/G 03/23/2024 1:11 PM WARP KNITTER HELPER [facility] Comment: NORMAL TO MILDLY INCREASED ALBUMINURIA: <30 MG/G MODERATELY INCREASED ALBUMINURIA: 30 TO 300 MG/G SEVERELY INCREASED ALBUMINURIA: >300 MG/G PER KDIGO URINE SPECIMEN / Unknown 03/23/2024 12:36 PM WARP KNITTER HELPER us Almas Smith DO URINE ORDERABLES Final Resul t [facility] [address] [place] [address], from Last 3 Months Insurance [employer] Care Teams Tool Machine Shop Supervisor Relationship Specialty Start Date End Date Bindu Cruz MD [address] [place] [address] PCP - General INTERNAL MEDICINE 03/23/24
--- OUTSIDE RECORDS SUMMARY | 2024-04-02 14:32 | XMS_ITS | Patient Health Summary ---
Author Organization [facility] Address [address] [place] [address] Care Team Providers Care Roll Wrapper Name Role Phone Bindu Cruz MD Primary Care Provider Note from [facility],non-owned Affiliates and Associated Physician Practices is amultiple site organization consisting of ambulatory clinics and hospital sitesin [place], [place], [place] and [place]. This disclosure is being madepursuant to the Care Everywhere program and may not contain all information available regarding this patient. Last updated 17.[facility] Allergies * Codeine(Other) -Medium Criticality * Metronidazole(Urticaria) -Medium Criticality Medications * Be aware that medications may not be up to date on this document. Alwaysverify current medications with the patient. * aspirin EC (ECOTRIN) 81 MG tablet 81 mg every 24 hours * amLODIPine (NORVASC) 5 MG tablet 5 mg once daily * carvedilol (COREG) 3.125 MG tablet Take 3.125 mg by mouth 2 times daily with morning and evening meal * metoclopramide (REGLAN) 5 MG tablet(Started 03/13/2018) metoclopramide 5 mg tablet TAKE 1 TABLET BY MOUTH TWICE DAILY BEFORE MEALS * omeprazole (PRILOSEC) 20 MG capsule(Started 08/12/2019) TK ONE C PO BID * QUEtiapine (SEROQUEL) 25 MG tablet(Started 04/16/2019) Take 25 mg by mouth at bedtime * ENTRESTO 97-103 MG tablet(Started 09/24/2019) TK 1 T PO BID * spironolactone (ALDACTONE) 25 MG tablet spironolactone 25 mg tablet TAKE 1 TABLET BY MOUTH DAILY * tamsulosin (FLOMAX) 0.4 MG capsule(Started 08/12/2019) Take 0.4 mg by mouth once daily * venlafaxine XR 24hr (EFFEXOR XR) 150 MG capsule(Started 08/12/2019) TK ONE C PO D * vilazodone (VIIBRYD) 40 MG tablet Viibryd 40 mg tablet * sulfamethoxazole-trimethoprim (BACTRIM; SEPTRA) 400-80 MG tablet(Started 10/24/2019) Take 1 tablet by mouth every 12 hours Active Problems Problem Noted Date Diagnosed Date 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 Never 10/23/2019 Average Number of Drinks Not on file 020 Frequency of Binge Drinking Not on file 10/12 Sex and Gender Information Value Date Recorded Sex Assigned at Not on file Gender Identity Not on file Sexual Orientation Not on file Last Filed Vital Signs Vital Sign Reading Time Taken Comments Blood Pressure 113/61 10/24/2019 7:49 AM CDT Pulse 59 10/24/2019 7:49 AM CDT Temperature 36.3 C (97.4 F) 10/24/2019 7:49 AM CDT Respiratory Rate 16 10/24/2019 7:49 AM CDT Oxygen Saturation 93% 10/24/2019 9:00 AM CDT Inhaled Oxygen Concentration - - Weight 68.5 kg (151 lb) 10/23/2019 12:58 PM CDT Height 170.2 cm (5' 7 ) 10/23/2019 12:58 PM CDT Body Mass Index 23.65 10/23/2019 12:58 PM CDT Procedures * PATHOLOGY TISSUE EXAM (STL)(Performed 10/23/2019) Performed for Diagnosis unknown * LARYNGEAL MASK AIRWAY(Performed 10/23/2019) * TRANSURETHRAL RESECTION PROSTATE (TURP)(Performed 10/23/2019) * SARS-COV-2 (COVID-19) IN HOUSE(Performed 10/20/2019) Performed for Preop examination * URINE MICROSCOPIC ONLY REFLEX TO CULTURE(Performed 10/05/2019) Performed for Preop examination * URINALYSIS REFLEX MICROSCOPIC REFLEX CULTURE(Performed 10/05/2019) Performed for Preop examination * COMPREHENSIVE METABOLIC PANEL(Performed 10/05/2019) Performed for Preop examination * CBC W AUTO DIFFERENTIAL(Performed 10/05/2019) Performed for Preop examination * EKG 12-LEAD(Performed 10/05/2019) Performed for Preop examination * SARS-COV-2 (COVID-19) IN HOUSE(Performed 10/04/2019) Performed for Preop examination * DERMATOPATHOLOGY(Performed 03/09/2016) Results * PATHOLOGY TISSUE EXAM (STL) (10/23/2019 4:31 PM CDT) Case Report Surgical Pathology Report Case: [id number] Authorizing Provider: Anthony Martinez MD Collected: 10/23/2019 04:31 PM Ordering Location: [facility] Received: 10/26/2019 07:11 AM Pathologist: Jamey Bowling MD Specimen: Prostate TUR, prostate 10/27/2019 3:02 PM CDT [facility] Final Diagnosis Prostate, TURP: -- Glandular and stromal hyperplasia -- Lithiasis 10/27/2019 3:02 PM CDT [facility] Gross Description Received in formalin in a single container labeled Jaime Anderson and prostate TUR, are multiple pink-mckeon irregular tissue fragments measuring 10.3 x 7.7 x 1.1 cm in aggregate and weigh 17 g in toto. The specimen is entirely submitted in cassettes A1 through A15. There are three yellow round stones present in the container ranging from 0.2 cm to 0.3 cm. The stones are gross examination only. CH/me 10/27/2019 3:02 PM CDT [facility] Microscopic Description Sections reveal multiple fragments of prostatic chips exhibiting stromal and glandular hyperplasia. Calcifications and focal chronic inflammation are noted. There is no definitive evidence of malignancy. 10/27/2019 3:02 PM CDT [facility] Disclaimer All histochemical and/or immunohistochemical results are interpreted with controls that demonstrate appropriate staining reactions before reporting results. Note on use of immunocytochemistry reagents: This test was developed and its performance characteristic determined by [facility], Department of Laboratory Medicine. It has not been cleared or approved by the U.S. Food and Drug Administration (FDA). The FDA has determined that such clearance or approval is not necessary. The test is used for clinical purpose. It should not be regarded as investigational or for research. This laboratory is certified to perform high complexity testing. The performance characteristics of the IHC/CAMPBELL assays have been validated on formalin-fixed paraffin embedded tissues only. The assays have not been validated on decalcified tissues. Results should be interpreted with caution. 10/27/2019 3:02 PM CDT [facility] Embedded Images 10/27/2019 3:02 PM CDT [facility] Pathology/Cytolo gy TRANSURETHRAL PROSTATECTOMY / Unknown 10/23/2019 4:31 PM CDT 10/26/2019 7:11 AM CDT Anthony Martinez MD LAB - PATHOLOGY/CY TOLOGY ORDERABLES Performing Organization Address City/State/[facility] Co de Phone Number [facility] [address] [place] [address] * LARYNGEAL MASK AIRWAY (10/23/2019 4:09 PM CDT) Narrative Tonya Leal APRN-CRNA - 10/23/2019 4:09 PM CDT Tonya Leal APRN-CRNA 10/23/2019 4:09 PM LMA Placement Procedure/LDA Note: Patient Location: OR. Procedure: LMA. Pretreatment: 100% O2 Induction: standard IV Patient position: supine. Mask Ventilation: not attempted Type: gel LMA Size: 5 Number of Attempts: 1. Placement verified by: CO2 monitor Staff Section Anesthesia Provider: Tonya Leal APRN-CRNA, Performed the procedure Victor M Lock DO GENERAL ANESTHESIA O RDERABLES * SARS-COV-2 (COVID-19) PRE-SURGICAL/PROCEDURE (10/20/2019 1:11 PM CDT) Only the most recent of2 resultswithin the time period is included. COVID-19 PCR Not detected Not detected, Invalid 10/21/2019 6:18 AM CDT [facility] Microbiology SPECIMEN FROM NASOPHARYNGEAL STRUCTURE / Unknown Collection / Unknown 10/20/2019 1:11 PM CDT 10/20/2019 2:31 PM CDT Narrative [facility] - 10/21/2019 6:18 AM CDT This Real Time RT-PCR assay was developed and its performance characteristics determined by [facility]. This test has been authorized by the Food and Drug administration (FDA)under an Emergency Use Authorization (EUA). This test has been validated in accordance with the FDA's guidance document Policy for Diagnostic Testing in Laboratories Certified to perform High Complexity Testing under CLIA prior to Emergency Use Authorization for Coronavirus Disease-2019 during the Public Health Emergency issued on April 11, 2019. FDA independent review of this validation is pending. This test is only authorized for the duration of time the declaration that circumstances exist justifying the authorization of emergency use of in vitro diagnostic tests for detection of SARS-CoV-2 virus and/or diagnosis of COVID-19 infection under section 564(b)(1) of the Act, 21 U.S.C 360bbb-3 (b)(1), unless the authorization is terminated or revoked sooner. Anthony Martinez MD LAB - MICROBIOLOGY ORDERABLES [facility] [address] [place] [address], [facility] [phone] * URINE MICROSCOPIC ONLY REFLEX TO CULTURE (10/05/2019 11:58 AM CDT) Reflex Status Culture not indicated 10/05/2019 3:00 PM CDT [facility] RBC UA 3-5 None Seen, 0-2, 3-5 # /hpf 10/05/2019 3:00 PM CDT [facility] WBC UA 0-5 None Seen, 0-5 # /hpf 10/05/2019 3:00 PM CDT [facility] Bacteria UA None Seen None Seen 10/05/2019 3:00 PM CDT [facility] Squamous Epithelial Cells 0-2 None Seen, 0-2, 3-5 /hpf 10/05/2019 3:00 PM CDT [facility] Mucus UA 1+ /LPF 10/05/2019 3:00 PM CDT [facility] Urine URINE SPECIMEN OBTAINED BY CLEAN CATCH PROCEDURE / Unknown Collection / Unknown 10/05/2019 11:58 AM CDT 10/05/2019 2:49 PM CDT Narrative [facility] - 10/05/2019 3:00 PM CDT Anthony Martinez MD LAB - URINALYSIS O RDERABLES [facility] [address] [place] [address] * (ABNORMAL) URINALYSIS REFLEX MICROSCOPIC REFLEX CULTURE (10/05/2019 11:58 AM CDT) Color UA Yellow Straw, Yellow 10/05/2019 2:57 PM CDT [facility] Clarity UA Clear Clear 10/05/2019 2:57 PM CDT [facility] Glucose UA Negative Negative 10/05/2019 2:57 PM CDT [facility] Bilirubin UA Negative Negative 10/05/2019 2:57 PM CDT [facility] Ketone UA Negative Negative 10/05/2019 2:57 PM CDT [facility] Specific [place] UA 1.023 1.005 - 1.030 10/05/2019 2:57 PM CDT [facility] Blood UA Negative Negative 10/05/2019 2:57 PM CDT [facility] pH UA 5.0 5.0 - 8.0 pH 10/05/2019 2:57 PM CDT [facility] Protein UA 2+(A) Negative 10/05/2019 2:57 PM CDT [facility] Urobilinogen UA 2.0(A) Negative mg/dL 10/05/2019 2:57 PM CDT [facility] Nitrite UA Negative Negative 10/05/2019 2:57 PM CDT [facility] Leukocyte UA Negative Negative 10/05/2019 2:57 PM CDT [facility] Urine Microscopy Urine microscopy to follow 10/05/2019 2:57 PM CDT [facility] Reflex Status Culture not indicated 10/05/2019 2:57 PM CDT [facility] Urine URINE SPECIMEN OBTAINED BY CLEAN CATCH PROCEDURE / Unknown Collection / Unknown 10/05/2019 11:58 AM CDT 10/05/2019 2:49 PM CDT Narrative [facility] - 10/05/2019 2:57 PM CDT Anthony Martinez MD LAB - URINALYSIS O RDERABLES [facility] [address] [place] [address] * (ABNORMAL) CBC W AUTO DIFFERENTIAL (10/05/2019 11:58 AM CDT) WBC 9.1 4.4 - 10.7 x10E9/L 10/05/2019 12:08 PM CDT [facility] WBC Corrected 10/05/2019 12:08 PM CDT [facility] RBC 5.46(H) 3.80 - 5.40 x10E12/L 10/05/2019 12:08 PM CDT [facility] Hemoglobin 15.7 12.0 - 17.6 gm/dL 10/05/2019 12:08 PM CDT [facility] Hematocrit 48.7 35.2 - 51.7 % 10/05/2019 12:08 PM CDT [facility] MCV 89.2 80.7 - 98.3 fl 10/05/2019 12:08 PM CDT [facility] MCH 28.8 26.7 - 34.0 pg 10/05/2019 12:08 PM CDT [facility] MCHC 32.2 30.8 - 35.9 gm/dL 10/05/2019 12:08 PM CDT [facility] Platelet Count 213 153 - 416 x10E9/L 10/05/2019 12:08 PM CDT [facility] RDW-CV 13.9 12.1 - 14.9 % 10/05/2019 12:08 PM CDT [facility] MPV 10.1 9.4 - 12.9 fl 10/05/2019 12:08 PM CDT [facility] Neutrophils % 73.6(H) 44.0 - 73.0 % 10/05/2019 12:08 PM CDT [facility] Lymphocytes % 15.9(L) 20.0 - 43.0 % 10/05/2019 12:08 PM CDT [facility] Monocytes % 6.7 5.0 - 13.0 % 10/05/2019 12:08 PM CDT [facility] Eosinophils % 3.2 0.0 - 6.0 % 10/05/2019 12:08 PM CDT [facility] Basophils % 0.3 0.0 - 2.0 % 10/05/2019 12:08 PM CDT [facility] Immature Granulocytes 0.3 0 - 1 % 10/05/2019 12:08 PM CDT [facility] Neutrophil Absolute 6.69 2.01 - 7.14 x10E9/L 10/05/2019 12:08 PM CDT [facility] Lymphocytes Absolute 1.45 1.07 - 3.94 x10E9/L 10/05/2019 12:08 PM CDT [facility] Monocytes Absolute 0.61 0.26 - 1.07 x10E9/L 10/05/2019 12:08 PM CDT [facility] Eosinophils Absolute 0.29 0 - 0.47 x10E9/L 10/05/2019 12:08 PM CDT [facility] Basophils Absolute 0.03 0 - 0.08 x10E9/L 10/05/2019 12:08 PM CDT [facility] Immature Granulocytes Absolute 0.03 0.00 - 0.06 x10E9/L 10/05/2019 12:08 PM CDT [facility] nRBC Auto 0 /100 WBC 10/05/2019 12:08 PM CDT [facility] Blood BLOOD SPECIMEN / Unknown Venipuncture / Unknown 10/05/2019 11:58 AM CDT 10/05/2019 12:04 PM CDT Carmina Agosto SPECIAL INVESTIGATOR-ACCOUNT MANAGER SALES REPRESENTATIVE LAB - JONAS TOLOGY ORDERABLES [facility] [address] [place] [address] * (ABNORMAL) COMPREHENSIVE METABOLIC PANEL (10/05/2019 11:58 AM CDT) Pathologist [facility] Glucose 108(H) 70 - 105 mg/dL 10/05/2019 12:21 PM CDT [facility] Sodium 142 136 - 145 mmol/L 10/05/2019 12:21 PM CDT [facility] Potassium 4.0 3.5 - 5.1 mmol/L 10/05/2019 12:21 PM CDT [facility] Chloride 106 98 - 107 mmol/L 10/05/2019 12:21 PM CDT [facility] CO2 24 23 - 31 mmol/L 10/05/2019 12:21 PM CDT [facility] Calcium 9.3 8.4 - 10.4 mg/dL 10/05/2019 12:21 PM CDT [facility] Anion Gap 12 8 - 16 mmol/L 10/05/2019 12:21 PM CDT [facility] BUN 22 8.4 - 25.7 mg/dL 10/05/2019 12:21 PM CDT [facility] Creatinine 1.15 0.72 - 1.25 mg/dL 10/05/2019 12:21 PM CDT [facility] Alkaline Phosphatase 77 40 - 150 U/L 10/05/2019 12:21 PM CDT [facility] ALT 8 0 - 61 U/L 10/05/2019 12:21 PM CDT [facility] AST 10 5 - 34 U/L 10/05/2019 12:21 PM CDT [facility] Protein Total 7.2 6.4 - 8.3 gm/dL 10/05/2019 12:21 PM CDT [facility] Albumin 4.0 3.2 - 4.6 gm/dL 10/05/2019 12:21 PM CDT [facility] Bilirubin Total 0.4 0.2 - 1.2 mg/dL 10/05/2019 12:21 PM CDT [facility] eGFR by MDRD >60 mL/min/1.7 3m2 10/05/2019 12:21 PM CDT [facility] eGFR by MDRD >60 mL/min/1.7 3m2 10/05/2019 12:21 PM CDT [facility] Blood BLOOD SPECIMEN / Unknown Venipuncture / Unknown 10/05/2019 11:58 AM CDT 10/05/2019 12:04 PM CDT Carmina Agosto SPECIAL INVESTIGATOR-ACCOUNT MANAGER SALES REPRESENTATIVE LAB - CHEM ISTRY ORDERABLES [facility] [address] [place] [address] * EKG 12-LEAD (10/05/2019 10:56 AM CDT) Ventricular Rate 79 BPM [facility] Atrial Rate 79 BPM [facility] P-R Interval 144 ms [facility] QRS Duration ms 82 ms [facility] Q-T Interval ms 358 ms [facility] QTC Calculation (Bezet) 410 ms [facility] Calculated P [place] 56 degrees [facility] Calculated R [place] -36 degrees [facility] Calculated T [place] -70 degrees [facility] Interpretation EKG Sinus rhythm with Premature atrial complexes in a pattern of bigeminy Left axis deviation Low voltage QRS Cannot rule out Septal infarct , age undetermined ST & T wave abnormality, consider lateral ischemia Abnormal ECG No previous ECGs available Confirmed by ROSE MARIE ESPINOZA MD ([id number]) on 10/05/2019 8:53:51 PM [facility] 10/05/2019 10:5 6 AM CDT 10/05/2019 8:53 PM CDT Lakesha Xiao DO ECG ORDERABLES Performing Organization Address [facility] Co de Phone Number [facility] * PATHOLOGY TISSUE FOR DERMATOLOGY (03/09/2016 12:00 AM GAME AND FISH PROTECTOR) Result CASE: [id number] PATIENT: JAIME ANDERSON PATHOLOGIC DIAGNOSIS: Left upper eyelid: SQUAMOUS PAPILLOMA, BENIGN CLINICAL DATA: R/O ISK, dys. nevus. Check margins. GROSS DESCRIPTION: Received is one formalin filled container labeled with the patients name and designated left upper eyelid. The specimen consists of a scissor biopsy measuring [id number]. The margin is inked green. The specimen is bisected and submitted in 1 cassette. Jar 0. MICROSCOPIC DESCRIPTION: There is hyperkeratosis, papillomatosis, and acanthosis of the epidermis. The keratinocytes are mature. Electronically signed out by Kathryn Ritter M.D. 03/13/2016 5:04:01PM [facility] Comment: Performed at: Dermatopathology Laboratory [facility] - Department of Dermatology [address] [place] [address], 5th [place] [address] Phone number: [phone] FAX: [phone] 03/09/2016 03/12/2016 Jung Bee MD LAB - PATHOLOGY/CYTO LOGY ORDERABLES Performing Organization Address City/[facility] Co de Phone Number [facility] [address]th [place] [address], [facility] [phone] Care Teams Roll Wrapper Relationship Specialty Start Date End Date Bindu Cruz MD [address] [phone] PCP - General Internal Medicine 10/05/19
--- OUTSIDE RECORDS SUMMARY | 2024-04-02 14:32 | XMS_ITS | Referral Summary ---
Author Organization [facility] Address [address] [place] [address] Care Team Providers Care Animal Behaviourist Name Role Phone Bindu Cruz MD Primary Care Provider Source Comments [facility],non-owned Affiliates and Associated Physician Practices is amultiple site organization consisting of ambulatory clinics and hospital sitesin [place], [place], [place] and [place]. This disclosure is being madepursuant to the Care Everywhere program and may not contain all information available regarding this patient. Last updated 17.[facility] Allergies Active Allergy Reactions Criticality Noted Date Comments Codeine Other Medium 10/05/2019 Metronidazole Urticaria Medium 10/05/2019 Medications * Be aware that medications may not be up to date on this document. Alwaysverify current medications with the patient. Medication Sig Dispensed Refills Start Date End Date Status aspirin EC (ECOTRIN) 81 MG tablet 81 mg every 24 hours Acti ve amLODIPine (NORVASC) 5 MG tablet 5 mg once daily Active carvedilol (COREG) 3.125 MG tablet Take 3.125 mg by mouth 2 times daily with morning and evening meal Active metoclopramide (REGLAN) 5 MG tablet metoclopramide 5 mg tablet TAKE 1 TABLET BY MOUTH TWICE DAILY BEFORE MEALS 03/13/2018 Active omeprazole (PRILOSEC) 20 MG capsule TK ONE C PO BID 08/12/2019 Active QUEtiapine (SEROQUEL) 25 MG tablet Take 25 mg by mouth at bedtime 04/16/2019 Active ENTRESTO 97-103 MG tablet TK 1 T PO BID 09/24/2019 Active spironolactone (ALDACTONE) 25 MG tablet spironolactone 25 mg tablet TAKE 1 TABLET BY MOUTH DAILY Active tamsulosin (FLOMAX) 0.4 MG capsule Take 0.4 mg by mouth once daily 08/12/2019 Active venlafaxine XR 24hr (EFFEXOR XR) 150 MG capsule TK ONE C PO D 08/12/2019 Active vilazodone (VIIBRYD) 40 MG tablet Viibryd 40 mg tablet Acti ve sulfamethoxazole- trimethoprim (BACTRIM; SEPTRA) 400-80 MG tablet Take 1 tablet by mouth every 12 hours 14 tablet 10/24/2019 Active Active Problems Problem Noted Date Diagnosed [...] Mass Index 23.65 10/23/2019 12:58 PM CDT Plan of Treatment Not on file Advance Directives * Full Code (Latest Code Status on File) Date Activated Date Inactivated Comments 10/23/2019 8:31 PM 10/24/2019 6:41 PM Care Teams Animal Behaviourist Relationship Specialty Start Date End Date Bindu Cruz MD [address] [address] PCP - General Internal Medicine 10/05/19
--- OUTSIDE RECORDS SUMMARY | 2024-04-02 14:32 | XMS_ITS | Encounter Summary ---
Author Organization [facility] Address [address] [place] [address] Care Team Providers Care R&D Lab Technician Name Role Phone Victor M Roman MD Unavailable [phone] Madelaine Cruz MD Primary Care Provide r Encounter Details Date Type Department Care Team (Late st Contact Info) Description 04/01/2024 Orders Only [place] Hydro Sprayer Operator [address] [place] [phone] Amber Orlando MD [address] [place] [address] [address] Hyperlipidemia, unspecified hyperlipidemia type (Primary Dx) Social History Tobacco Use Types Packs/Day Years Used Date Smoking Tobacco: Former Cigarettes 0.5 40 1 981 - 2020 Smokeless Tobacco: Never Alcohol Use Standard Drinks/Week Comments No 0 (1 standard drink = 0.6 oz pur e alcohol) Sex and Gender Information Value Date Recorded Sex Assigned at Not on file Legal Sex Male 10:27 AM COMMERCIAL INSULATOR Gender Identity Not on file Sexual Orientation Not on file documented as of this encounter Progress Notes * Tri Vidal MA - 04/01/2024 12:03 PM CST pi ERCIAL INSULATOR documented in this encounter Plan of Treatment Scheduled Orders Name Type Priority Associated Diagnoses Orde r Schedule Lipid panel Lab Routine Hyperlipidemia, unspecified hyperlipidemia type Expected: 04/15/2024 (Approximate), Expires: 04/01/2025 Hepatic function panel Lab Routine Hyperlipidemia, unspecified hyperlipidemia type Expected: 04/15/2024 (Approximate), Expires: 04/01/2025 TSH Lab Routine Hyperlipidemia, unspecified hyperlipidemia type Expected: 04/15/2024 (Approximate), Expires: 04/01/2025 documented as of this encounter Goals Goal Patient Goal Type Associated Problems Recent Progress Patient-Stated? Author Take your medication every day Lifestyle No Prabha Garcia MSW documented as of this encounter Visit Diagnoses Diagnosis Hyperlipidemia, unspecified hyperlipidemia type- Primary documented in this encounter Care Teams R&D Lab Technician Relationship Specialty Start Date End Date Madelaine Cruz MD [address] [address] PCP - General Internal Medicine 04/01/24 Victor M Roman MD Consulting Physician Cardiology 12/03/17 documented as of this encounter
--- OUTSIDE RECORDS SUMMARY | 2024-04-02 14:32 | XMS_ITS | Continuity of Care Document ---
Author Organization [facility] Address [address] [place] [address] Phone Care Team Providers Care Commissions Specialist Name Role Phone Leonardo Salazar Unavailable Unavailable Advance Directives Directive Yes / No Effective Date File Name No Information Encounters Encounter Description Practice Location Reason(s) For Visit Diagnoses Date Provider Providers Copied on Encounter [facility], [address], [place], [place], [id number], [place] tel:[phone] SEC [facility] No Information [address] [facility] , [address], [place], [address], [place]. tel:[phone] Family History Family Member Type Diagnosis Age At Onset No Information Payers Payer name Insurance type Covered democrat ID Authoriza tion(s) No Information Social History Type Description Quantity Date Captured Comments Sex Male Smoking Status No Information Chief Complaint And Reason For Visit No Information Reason For Referral Reason For Referral No Information History Of Present Illness Encounter Date Complaint History Of Prese nt Illness No Information Functional Status Date Functional Assessmen t No Information Instructions Date Instruction Additional Infor mation No Information Assessments Type Assessment Date No Information Patient Care Teams Name Effective Dates (start - stop) Status Members No Information
--- OUTSIDE RECORDS SUMMARY | 2024-04-02 14:32 | XMS_ITS | Clinical Summary ---
Author Organization [facility] Facility Address [address] [place] [address] Care Team Providers Care Composition Worker Name Role Phone Bindu Cruz MD Primary Care Provider [phone] Medications Dapagliflozin Propanediol 10 MG tablet Take 10 mg by mouth every morning 90 tablet 1 06/16/2021 Active chlorthalidone 25 MG tablet Take 0.5 tablets (12.5 mg total) by mouth every morning 45 tablet 1 08/22/2021 Active ergocalciferol 1.25 MG (68551 UT) capsule Take 1 capsule (50,000 Units total) by mouth 1 (one) time per week 12 capsule 1 01/30/2022 Active magnesium oxide (MAG-OX) 400 MG tablet Take 1 tablet (400 mg total) by mouth 1 (one) time each day 90 tablet 1 01/30/2022 Active Encounters Date Type Department Care Team Description 03/23/2024 Documentation Only [facility], [address] [address] Almas Smith, 03/23/2024 Documentation Only [facility] [address] [place] [address] Almas Smith, DO 03/23/2024 Documentation Only [facility], [address] [address] Almas Smith, DO 03/23/2024 Documentation Only [facility], [address] [place] [address] Almas Smith, DO 03/23/2024 Documentation Only [facility], [address] [place] [phone] Almas Smith, DO 03/23/2024 Documentation Only [facility], [address] [place] [address] Almas Smith, DO 03/23/2024 Documentation Only [facility], [address] [place] [address] Almas Smith, DO 03/23/2024 Documentation Only [facility], [address] [place] [address] Almas Smith, DO from Last 3 Months Social History Tobacco Use Types Packs/Day Years Used Date Smoking Tobacco: Never Assessed Sex and Gender Information Value Date Recorded Sex Assigned at Not on file Legal Sex Male 4:36 PM EST Gender Identity Not on file Sexual Orientation Not on file Last Filed Vital Signs Vital Sign Reading Time Taken Comments Blood Pressure 130/80 01/30/2022 2:21 PM STEM FRAZER Pulse 71 01/30/2022 2:21 PM STEM FRAZER Temperature 36.4 C (97.6 F) 01/30/2022 2:21 PM STEM FRAZER Respiratory Rate 18 01/30/2022 2:21 PM STEM FRAZER Oxygen Saturation 99% 01/30/2022 2:21 PM STEM FRAZER Inhaled Oxygen Concentration - - Weight 74.4 kg (164 lb) 01/30/2022 2:21 PM STEM FRAZER Height 172.7 cm (5' 8 ) 01/30/2022 2:21 PM STEM FRAZER Body Mass Index 24.94 01/30/2022 2:21 PM STEM FRAZER Plan of Treatment Upcoming Encounters Date Type Department Care Team (Late st Contact Info) Description 06/02/2024 1:45 PM CDT Office Visit [facility], [facility] [address] [facility] [address] [place] [address] Almas Smith DO [address] [place] [phone] Health Maintenance Due Date Last Done Comments Pneumococcal Vaccine: 65+ Ye ars (1 of 2 - PCV) 1946 Influenza Vaccine (#1) 2023 Hepatitis B Vaccine Aged Out No longe r eligible based on patient's age to complete this topic Insurance [facility] PPO ([id number]) Advance Directives Documents on File Type Date Recorded Patient Fiscal Services Director Expl anation Advance Care Planning 06/16/2021 4:12 PM Care Teams Composition Worker Relationship Specialty Start Date End Date Bindu Cruz MD [address] [facility], [address] [place] [address] PCP - General Internal Medicine 12/29/20
--- OUTSIDE RECORDS SUMMARY | 2024-04-02 14:32 | XMS_ITS | Encounter Summary ---
Author Organization [facility] Address [address] [facility] [place] [address] Phone Care Team Providers Care Ct Scan Special Procedures Technologist Name Role Phone Bindu Cruz MD Primary Care Provider [phone] Reason for Visit * Reason Comments Med Refill Encounter Details Date Type Department Care Team (Late st Contact Info) Description 07/07/2022 Refill [facility] [address] [place] [address] Almas Smith, DO [address] [facility] [address] [place] [address] Social History Tobacco Use Types Packs/Day Years Used Date Smoking Tobacco: Never Assessed Sex and Gender Information Value Date Recorded Sex Assigned at Not on file Legal Sex Male 4:36 PM EST Gender Identity Not on file Sexual Orientation Not on file documented as of this encounter Miscellaneous Notes * Telephone Encounter - Grace Liu CMA - 07/10/2022 11:55 AM CDT Pt need to call schedule appt. documented in this encounter Plan of Treatment Upcoming Encounters Date Type Department Care Team (Late st Contact Info) Description 06/02/2024 1:45 PM CDT Office Visit [facility] [address] [facility] [address] [place] [address] Almas Smith DO [address] [place] [phone] documented as of this encounter Visit Diagnoses Not on filedocumented in this encounter Care Teams Ct Scan Special Procedures Technologist Relationship Specialty Start Date End Date Bindu Cruz MD [address] [facility], [address] [place] [id number] PCP - General Internal Medicine 12/29/20 documented as of this encounter
--- OUTSIDE RECORDS SUMMARY | 2024-04-02 14:32 | XMS_ITS | Clinical Summary ---
Author Organization [facility] Address [address] [place] [address] Care Team Providers Care Tennis Court Attendant Name Role Phone Victor M Roman MD Unavailable [phone] Madelaine Cruz MD Primary Care Provide r Allergies Active Allergy Reactions Criticality Noted Date [...] 01/28/2018 Assessment & Plan (01/28/2018 4:57 AM ELECTRICAL DEVELOPMENT ENGINEER): - home tamsulosin in AM CHF (congestive heart failure) ([facility]) 018 GERD (gastroesophageal reflux disease) 8 Depression 12/01/2017 [facility] current use of clopidogrel 11/23/2017 Aspirin long-term use 11/23/2017 History of CHF (congestive heart failure) 2017 Nausea in adult 11/23/2017 Assessment & Plan (01/29/2018 8:49 AM ELECTRICAL DEVELOPMENT ENGINEER): Chronic since PCI in 07/2017. DDx functional [...] 10/05/2017 Assessment & Plan (01/28/2018 4:59 AM ELECTRICAL DEVELOPMENT ENGINEER): - amlodipine, coreg Assessment & Plan (11/24/2017 11:25 AM CDT): -Cont home amlodipine and CHF regimen as above. Assessment & Plan (11/23/2017 10:57 PM CDT): -Cont home amlodipine and CHF regimen as above. If BP on lower end, consider d/cing Amlodipine as patient wants to take fewer meds. CAD (coronary artery disease) 10/05/2017 Assessment & Plan (01/28/2018 5:17 AM ELECTRICAL DEVELOPMENT ENGINEER): s/p 4v CABG with known occlusion of SVG to ramus now s/p PCI to LAD and LCx, last [facility] 07/2017 with patent stents and grafts. -Cont. ASA, plavix Assessment & Plan (11/24/2017 11:25 AM CDT): S/p 4v CABG with known occlusion of SVG to ramus now s/p PCI to LAD and LCx, last [facility] 07/2017 with patent stents and grafts. -Cont. ASA, statin, plavix. Assessment & Plan (11/23/2017 10:58 PM CDT): S/p 4v CABG with known occlusion of SVG to ramus now s/p PCI to LAD and LCx, last [facility] 07/2017 with patent stents and grafts. -Trop leak as above. -Cont. ASA, statin, plavix. Hyperlipidemia 10/05/2017 Assessment & Plan (01/28/2018 5:01 AM ELECTRICAL DEVELOPMENT ENGINEER): - no longer taking statin out of c/f nausea Assessment & Plan (11/24/2017 11:25 AM CDT): -Cont statin. Assessment & Plan (11/23/2017 10:58 PM CDT): -Cont statin. Anxiety 10/05/2017 Assessment & Plan (01/28/2018 5:00 AM ELECTRICAL DEVELOPMENT ENGINEER): - home buspar and mirtazapine - Patient [...] 07/18/2017 Assessment & Plan (01/29/2018 8:50 AM ELECTRICAL DEVELOPMENT ENGINEER): Last TTE at [facility] 09/2016 w/ EF [...] (07/17/2017): Added automatically from request for surgery [id number] Acute chest pain Weight loss, unintentional Encounters Date Type Department Care Team Description 04/01/2024 11:45 AM ELECTRICAL DEVELOPMENT ENGINEER Office Visit [facility] [address] [place] [phone] Amber Orlando MD Chronic congestive heart failure, unspecified heart failure type (HCC) (Primary Dx) 04/01/2024 Orders Only [facility] [address] [place] [phone] Amber Orlando MD Hyperlipidemia, unspecified hyperlipidemia type (Primary Dx) 03/23/2024 Orders Only [facility] [address] [place] [phone] Provider, MD Keri from Last 3 Months Surgical History Surgery Date Site/Laterality Comments BYPASS GRAFT Medical History Medical History Date Comments Myocardial infarct, old Hypertension CHF (congestive heart failur e) (CMS/HCC) (HCC) Hyperlipidemia Depression GERD (gastroesophageal reflux disease) CAD (coronary artery disease) s/ p 4v CABG in 07/2016, SHI-->diag, SVG-->ramus, radial graft-->OM, and SVG-->RCA. Subsequently had PCI to LAD and LCx in 09/2016. Last [facility] 07/2017 with patent stents, [facility] SVG to ramus but otherwise patent grafts. Family History Medical History Relation Name Comments Coronary artery disease Father Fami ly history of coronary artery disease - (Added by TW Conv) Lung cancer Father Coronary artery disease Mother Fami ly history of coronary artery disease - (Added by TW Conv) Heart disease Mother Hypertension Mother Relation Name Status Comments Father Mother Social History Tobacco Use Types Packs/Day Years Used Date Smoking Tobacco: Former Cigarettes 0.5 40 1 1 - 2020 Smokeless Tobacco: Never Tobacco Cessation:Counseling Given: Not Answered Alcohol Use Standard Drinks/Week Comments No 0 (1 standard drink = 0.6 oz pur e alcohol) Sex and Gender Information Value Date Recorded Sex Assigned at Not on file Legal Sex Male 10:27 AM ELECTRICAL DEVELOPMENT ENGINEER Gender Identity Not on file Sexual Orientation Not on file Obstetrics History Last Filed Vital Signs Vital Sign Reading Time Taken Comments Blood Pressure 144/88 04/01/2024 11:41 AM ELECTRICAL DEVELOPMENT ENGINEER Pulse 71 04/01/2024 11:41 AM ELECTRICAL DEVELOPMENT ENGINEER Temperature 36.2 C (97.1 F) 05/25/2020 10:17 AM CDT Respiratory Rate 16 04/01/2024 11:41 AM ELECTRICAL DEVELOPMENT ENGINEER Oxygen Saturation 90% 04/01/2024 11:41 AM ELECTRICAL DEVELOPMENT ENGINEER Inhaled Oxygen Concentration - - Weight 75.3 kg (166 lb) 04/01/2024 11:41 AM ELECTRICAL DEVELOPMENT ENGINEER Height 172.7 cm (5' 8 ) 12/27/2021 11:32 AM ELECTRICAL DEVELOPMENT ENGINEER Body Mass Index 25.24 12/27/2021 11:32 AM ELECTRICAL DEVELOPMENT ENGINEER Plan of Treatment Health Maintenance Due Date Last Done Comments Depression Screening 1941 Fall Risk Assessment 1940 DTaP/Tdap/Td Vaccine (1 - Tdap) 1952 Hepatitis B Screening 1959 Zoster Vaccine (1 of 2) 1991 Well Visit 65+ 2006 Influenza Vaccine (#1) 2023 9, 12/08/2018, 01/23/2016, Additional history exists Pneumococcal vaccine 65+ Completed 12/15/2018, 10/12 Goals Goal Patient Goal Type Associated Problems Recent Progress Patient-Stated? Author Take your medication every day Lifestyle No Prabha Garcia, REHAB PHYSICIAN Medical Devices Implanted Type Area Oven Laborer Device Identifier Shelf Expiration Date Model / Serial / Lot Cardiac Stent Heart Description:Mini Vision bare metal stent placed 2016 in posterior lateral artery (patient has card [...] Comments ECG 12-LEAD Routine 04/01/2024 11:39 AM ELECTRICAL DEVELOPMENT ENGINEER Chronic congestive heart failure, unspecified heart failure type (HCC) EXTERNAL REFERENCE LAB RESULTS Routine 03/23/2024 1:40 PM ELECTRICAL DEVELOPMENT ENGINEER from Last 3 Months Results * ECG 12 lead (04/01/2024 11:39 AM ELECTRICAL DEVELOPMENT ENGINEER) Amber Orlando MD ECG ORDERABLES Final Result * External Reference Lab Results (03/23/2024 1:40 PM ELECTRICAL DEVELOPMENT ENGINEER) Historical Provider LAB BLOOD ORDERABLES Lily l Result from Last 3 Months Insurance MEDICARE COMMERCIAL GENERIC MEDICARE COMMERCIAL GENERIC [place] INSURANCE [facility] [employer] MEDICARE [employer] MEDICARE HMO [employer] CHOICE MEDICARE PPO Advance Directives For more information, please contact: [phone] * Full Code (Latest Code Status on [...] 9:13 PM 10/05/2017 7:18 PM Care Teams [address] Court Attendant Relationship Specialty Start Date End Date Madelaine Cruz MD [address] [place] [phone] PCP - General Internal Medicine 04/01/24 Victor M Roman MD Consulting Physician Cardiology 12/03/17
--- OUTSIDE RECORDS SUMMARY | 2024-04-02 14:32 | XMS_ITS | Clinical Summary ---
Author Organization [facility] Address [address] [place] [address] Care Team Providers Care Coal Handling Supervisor Name Role Phone Bindu Cruz MD Primary Care Provider Source Comments [facility],non-owned Affiliates and Associated Physician Practices is amultiple site organization consisting of ambulatory clinics and hospital sitesin [place], [place], [place] and [place]. This disclosure is being madepursuant to the Care Everywhere program and may not contain all information available regarding this patient. Last updated 17.[facility] Allergies Active Allergy Reactions Criticality Noted Date [...] 10/23/2019 12:58 PM CDT Plan of Treatment Health Maintenance Due Date Last Done Comments MEDICARE AWV 12 MONTHS 1941 DTAP/TDAP/TD VACCINES (1 - Tdap) 1960 PNEUMOCOCCAL VACCINE 50+ (1 of 2 - PCV) 1960 ZOSTER VACCINE (1 of 2) 1991 Respiratory Syncytial Virus (RSV) Vaccine Pt: or over 60 yrs (1 - 1-dose 75+ series) 2016 COVID-19 VACCINE (2023-2 5 season) 2023 INFLUENZA VACCINE (#1) 2023 9, 01/23/2016, 02/22/2014 DEPRESSION SCREENING 02/12/2024 HEPATITIS B VACCINE Aged Out No longe r eligible based on patient's age to complete this topic HIB VACCINE Aged Out No longer eligi ble based on patient's age to complete this topic HPV VACCINE Aged Out No longer eligi ble based on patient's age to complete this topic MENINGOCOCCAL (Group B) VACCINE Aged Out No longer eligible b ased on patient's age to complete this topic MENINGOCOCCAL VACCINE Aged Out No jonathan loraine eligible based on patient's age to complete this topic Advance Directives * Full Code (Latest Code Status on File) Date Activated Date Inactivated Comments 10/23/2019 8:31 PM 10/24/2019 6:41 PM Care Teams Coal Handling Supervisor Relationship Specialty Start Date End Date Bindu Cruz MD [address] [phone] PCP - General Internal Medicine 10/05/19
[2024-04-02 15:07] LABS: Cholesterol 111 mg/dL (0-200); HDL Direct 45 mg/dL (40-60); LDL Cholesterol Calculated 41 mg/dL (<130); Thyroid Stimulating Hormone 0.68 uIU/mL (0.36-3.74); Triglycerides 125 mg/dL (0-150)
== END 2024-04-02 14:21 | disposition home or self-care (01) ==
LOC: CHSLAB 14:29
PROVIDERS: PCP Internal Medicine
DX: E78.5 Hyperlipidemia, unspecified (principal)
CPT/HCPCS: 36415; 80061; 84443